=== PATIENT | female | born 1935 | race Caucasian/White ===

== ENCOUNTER 2022-12-13 10:59 | Emergency (ER) | payer MEDICARE, SELFPAY ==
[2022-12-13] VITALS (24 sets, daily range): BP systolic 107–136; BP diastolic 50–78; PULSE 46–74; RESP 12–22; TEMP 36.4; O2SAT 98–100
--- NOTE | ~2022-12-13 | CT_ITS ---
EXAMINATION: CT chest abdomen pelvis w con DATE: 12/13/2022 12:12 INDICATION: Syncope and fall. Bradycardia. TECHNIQUE: Computed tomography (CT) of the chest, abdomen, and pelvis was performed with 100 mL Omnip aque-350 intravenous contrast. Automated exposure control and iterative reconstruction technique were employed. The dose-length product was 1094.16 mGy-cm. COMPARISON: None FINDINGS: CHEST CT: Small bilateral pleural effusions. Compressive and discoid atelectasis in the bilateral lower lobes. Couple small calcified nodules at the lingula along with calcified left hilar and mediastinal lymph n odes consistent with old granulomatous disease. No pneumonia, pulmonary edema or pneumothorax. Pulmon lorne emboli with intraluminal filling defects in the anterior basilar and superior segmental pulmonary arteries of the right lower lobe. No other pulmonary emboli identified. Heart size is normal with bi atrial enlargement. No leftward shift of the articular septum to suggest right heart strain. Thoracic aorta is normal in caliber with no dissection. No pathologically enlarged thoracic lymphadenopathy. Several old healed right rib fractures. There is an incompletely visualized minimally displaced fract ure lateral right clavicle which appears to remain ununited. No evident scapular fracture identified although the acromion and base of the acromion are excluded from the [id number]. On review of prio r radiographs the irregular cortical contour along the cephalad margin of the scapula likely represen ts artifact from the superimposed coracoid process. Moderate thoracic spondylosis with mild kyphosis and chronic appearing mild anterior wedging at T6. There are bridging osteophytes at multiple levels consistent with diffuse idiopathic skeletal hyperostosis (DISH). ABDOMEN/PELVIS CT: There are few small hepatic and splenic calcific lesions consistent with old granulomatous disease. G allbladder, pancreas and bilateral adrenal glands are normal. Likely age-related mild bilateral renal atrophy with a few small right renal cysts the largest measuring 9 mm in maximal diameter. Suggestio n of a 7 mm enhancing nodule at the periphery of the upper pole of the left kidney suspicious for rubens al cell carcinoma. There is moderate colonic diverticulosis with a sigmoid predominance. There is no adjacent inflammatory change to suggest diverticulitis. Suggestion of a superolateral and along the tip the cecum suggesting prior appendectomy. No bowel obstruction. Partially decompressed bladder is normal. The uterus is not identified and has likely been surgically resected. No free intraperitoneal gas or fluid. No pathologically enlarged abdominal or pelvic lymphadenopathy. Diffuse body wall chasidy a. There is a subcutaneous surgical drain at the right flank. Single tiny focus of gas in the subcuta neous fat at the anterior right pelvis most likely related to subcutaneous injection. Small amount of gas throughout the surgical defect lateral to the proximal left femur with 3 cannulated lag screws s panning a subcapital fracture of the proximal left femur. Relatively acute appearing L2 burst fractur e with 7 mm retropulsion resulting in mild to moderate central canal stenosis. IMPRESSION: 1. Pulmonary emboli with relatively low clot burden in the superior segmental and anterior basilar se gmental pulmonary arteries of the right lower lobe. 2. Small bilateral pleural effusions with dependent and discoid atelectasis in the bilateral lower lo bes. 3. Normal heart size with biatrial enlargement. No findings to suggest right heart strain. 4. Relatively recent-appearing L2 burst fracture with 7 mm retropulsion resulting in mild to moderate central canal stenosis. 5. Additional relatively recent-appearing mildly displaced potentially ununited fracture of the later al right clavicle. 6. Suggestion of a 7 mm enhancing nodule at the upper pole of the left kidney cachorro
--- NOTE | ~2022-12-13 | CT_ITS ---
EXAMINATION: CT cervical spine wo con DATE: 12/13/2022 12:12 INDICATION: Status post fall. Neck pain. TECHNIQUE: Computed tomography (CT) of the cervical spine was performed without intravenous contrast. The dose-length product was 194 mGy-cm. Automated exposure control and iterative reconstruction technique were employed. COMPARISON: None FINDINGS: There are degenerative changes at C3-4, C4-5 and C5-6. Vertebral body heights are maintaine d. Odontoid process is normal. Craniovertebral junction is normal. No evidence for perched facet. The re is a nondisplaced fracture with sclerotic margins involving the left C7 lamina extending to the honeycutt perior articular process and transverse process. There are sclerotic margin suggesting a chronic frac ture. There is mild multilevel uncinate and facet hypertrophy. There is levoscoliosis. Lung apices ar e normal. No significant paraspinal soft tissue abnormality. IMPRESSION: 1. Nondisplaced C7 vertebral fracture involving the left lamina extending to involve the superior art icular and transverse processes. The margins are sclerotic suggesting a chronic fracture deformity. C onsider correlation with MRI. Reviewed, dictated and finalized at location L. IMPRESSION: 1. Nondisplaced C7 vertebral fracture involving the left lamina extending to in volve the superior articular and transverse processes. The margins are scleroti c suggesting a chronic fracture deformity. Consider correlation with MRI.
--- NOTE | ~2022-12-13 | CT_ITS ---
EXAMINATION: CT brain wo con DATE: 12/13/2022 12:12 INDICATION: Syncope and fall TECHNIQUE: Computed tomography (CT) of the head was performed without intravenous contrast. Sagittal and coronal reconstructions were performed. The mA was adjusted according to patient size. Iterative reconstruction technique was employed. The dose-length product was 605.33 mGy-cm. COMPARISON: None FINDINGS: No fracture. Small lenticular extra-axial hematoma which could be either epidural or subdural overlyi ng the left sylvian fissure which measures 3.5 cm AP, 3.1 cm craniocaudally and up to 1 cm in thickne ss. Asymmetric mild relative decrease fluid within the left sylvian fissure when compared with the ri ght likely reflecting some local mass effect. No other evident masses or mass effect with no midline shift. No acute acute infarction. There is moderate scattered white matter hypoattenuation consistent with chronic small vessel ischemic disease. Symmetric prominence of the sulci and ventricles consist ent with mild to moderate age-appropriate diffuse cerebral volume loss. No mass/mass effect. Changes of bilateral intraocular lens replacement. The orbits, paranasal sinuses and mastoid air cells are no rmal. IMPRESSION: 1. 3.5 x 3.1 x 1 cm either epidural or subdural hematoma overlying the left sylvian fissure. Dr. Alexandra ye discussed these findings with Dr. Diaz at 12:20 PM. 2. Age-related changes including mild to moderate diffuse on loss and moderate scattered white matter hypoattenuation consistent with chronic small vessel ischemic disease. Reviewed, dictated and finalized at location A. IMPRESSION: 1. 3.5 x 3.1 x 1 cm either epidural or subdural hematoma overlying the left pierre vian fissure. Dr. Jameson discussed these findings with Dr. Diaz at 12:20 PM. 2. Age-related changes including mild to moderate diffuse on loss and moderate scattered white matter hypoattenuation consistent with chronic small vessel isc hemic disease.
--- NOTE | ~2022-12-13 | XR_ITS ---
EXAMINATION: XR chest 1V portable DATE: 12/13/2022 12:00 INDICATION: Syncope. Right scapular fracture. TECHNIQUE: frontal view of the chest was obtained. COMPARISON: None FINDINGS: Linear and streaky discoid atelectasis at the bilateral lung bases, left greater than right. Well-def ined airspace opacity lung the left hemidiaphragm which could represent additional atelectasis or pne umonia. No pulmonary edema, pleural effusion or pneumothorax. Cardiomediastinal silhouette is within normal limits for AP technique. There are a few chronic appearing right rib fractures. Age-indetermin ate mildly displaced fractures of the lateral right clavicle and involving right scapular spine and c ephalad body. The clavicular fracture appears to remain ununited. Moderate degenerative skeletal boateng ges in the spine and at both shoulders. IMPRESSION: 1. Bibasilar opacities most likely atelectasis although differential at the left lung base would incl ude pneumonia. 2. Age-indeterminate fractures of the right scapula and lateral right clavicle, the latter appearing ununited. 3. Several chronic appearing right rib fractures. Reviewed, dictated and finalized at location A. IMPRESSION: 1. Bibasilar opacities most likely atelectasis although differential at the lef t lung base would include pneumonia. 2. Age-indeterminate fractures of the right scapula and lateral right clavicle, the latter appearing ununited. 3. Several chronic appearing right rib fractures.
--- NOTE | 2022-12-13 11:04 | ECG_ITS ---
Measurements Intervals [place] Rate: 55 P: DE: 0 QRS: 28 QRSD: 80 T: 33 QT: 392 QTc: 375 Interpretive Statements ATRIAL FIBRILLATION WITH SLOW VENTRICULAR RESPONSE ANTEROSEPTAL INFARCT, AGE INDETERMINATE ABNORMAL ECG NO PREVIOUS ECG AVAILABLE FOR COMPARISON Electronically Signed On 12-13-2022 17:32:08 CDT by Will Cai D.O.
[2022-12-13 11:20] LABS: Glucose Point of Care 116 mg/dl (65-105)
[2022-12-13 11:29] LABS: Basophils Percent Auto 0.7 % (0.2-1.2); Eosinophils Absolute Auto 0.2 K/mm3 (0-0.3); Eosinophils Percent Auto 3.5 % (0-4.4); Hematocrit 30.1 % (37.0-47.0); Hemoglobin 9.6 g/dL (12.0-15.0); Immature Granulocyte Absolute 0.05 K/mm3 (0.00-0.031); Immature Granulocyte Percent A 0.9 % (0-0.5); Lymphocytes Absolute Auto 0.81 K/mm3 (0.9-3.2); Lymphocytes Percent Auto 14.7 % (18.3-44.2); Mean Corpuscular HGB Conc 31.9 g/dl (32-36); Mean Corpuscular Hemoglobin 31.1 pg (26-34); Mean Corpuscular Volume 97.4 fl (80-100); Mean Platelet Volume 9.5 fl (7.4-10.4); Monocytes Absolute Auto 0.7 K/mm3 (0.1-0.6); Monocytes Percent Auto 12.5 % (2.6-8.5); Neutrophils Absolute Auto 3.7 K/mm3 (1.3-6.7); Neutrophils Percent Auto 67.7 % (45.5-73.1); Platelet Count Result 240 k/mm3 (150-375); Red Blood Count 3.09 M/mm3 (4.2-5.4); Red Cell Distribution Width 14.9 % (11.5-14.5); White Blood Count 5.5 K/mm3 (4.5-10.0)
--- NOTE | 2022-12-13 11:31 | ED.FALL ---
HPI - Fall General Chief Complaint: Neuro Symptoms/Deficit Stated Complaint: Altered Mental Status Time Seen by Provider: 12/13/22 11:06 History of Present Illness HPI Narrative: This is an 87-year-old female, recently discharged from [facility] after a fall with an epidural hematoma, who was brought in by EMS from physical therapy for hypotension and episode of unresponsiveness. EMS reports, the patient was participating in physical therapy at her baseline after her initial injury, when she became unresponsive. A blood pressure of 60/40 was reported. On their arrival, the patient's systolic blood pressure was reported in the low 100s. Blood glucose reported in the 120s. The patient does not recall losing consciousness. She has no pain or difficulty breathing. Related Data Home Medications Medication Instructions Recorded Confirmed alendronate 70 mg tablet 70 mg PO WEEKLY 04/29/22 04/29/22 levothyroxine 112 mcg tablet 112 mcg PO DAILY 04/29/22 04/29/22 oxybutynin chloride 5 mg 5 mg PO DAILY 04/29/22 04/29/22 tablet,extended release 24 hr primidone 50 mg tablet 50 mg PO HS 04/29/22 04/29/22 warfarin 10 mg tablet See Rx Instructions .Route .COMPLEX 04/29/22 04/29/22 Allergies Allergy/AdvReac Type Severity Reaction Status Date / Time adhesive Allergy Rash Verified 04/21/22 18:33 bacitracin AdvReac Rash Verified 04/21/22 18:33 [From Neosporin ([id number])] neomycin AdvReac Rash Verified 04/21/22 18:33 [From Neosporin ([id number])] polymyxin B AdvReac Rash Verified 04/21/22 18:33 [From Neosporin ([id number])] Plasticized base Allergy Rash Uncoded 04/21/22 18:33 CVS hemorrhoidal cream AdvReac Swelling Uncoded 04/21/22 18:33 Review of Systems Review of Systems: CONSTITUTIONAL: Denies fever, chills, or sweats. CARDIOVASCULAR: Denies chest pain, palpitations, or edema. RESPIRATORY: Denies cough or dyspnea. GASTROINTESTINAL: Denies abdominal pain, nausea, vomiting, or diarrhea. GENITOURINARY: Denies dysuria or hematuria. SKIN: Denies rash or itching. MUSCULOSKELETAL: Denies back pain, joint pain, or myalgia. NEUROLOGIC: Generalized weakness denies headache, numbness, dizziness, or weakness. PSYCHIATRIC: Denies anxiety or depression. [facility] Past Medical History Medical History (Updated 12/13/22 @ 14:29 by Kyler Diaz MD) Cervical spine fracture Chronic a-fib Epidural hematoma History of tremor HTN (hypertension) Hyponatremia Hypothyroidism Overactive bladder Pre-diabetes Seizure Social History Social History Smoking status: Unknown if ever smoked Second hand tobacco smoke exposure: No Alcohol intake: unknown Substance use: unknown Substance use type: unknown Spiritual care concerns: No Exam Narrative: GENERAL: Well-developed, well-nourished, and in no acute distress. HEAD: Normocephalic, healing ecchymosis is noted to the right temporal scalp EYES: PERRLA and EOMI. ENT: Nares clear, no rhinorrhea or epistaxis. Mucous membranes moist. Oropharynx without tonsillar hypertrophy exudate or other lesions. Bilateral TMs pearly marmolejo nonbulging. No hemotympanum NECK: C-collar. Supple. No adenopathy or masses. No carotid bruits or JVD. No midline spine tenderness to palpation, no step-off or crepitus CHEST: Clear to auscultation. No respiratory distress. No wheezes rales or rhonchi HEART: Irregular, bradycardic. No murmur heard. Normal peripheral pulses. ABDOMEN: Soft, nontender, nondistended, normal active bowel sounds. ROBERTA drain is noted in the right lower quadrant, just above the inguinal ligament draining approximately 25 cc of bloody fluid without purulence. BACK: No midline spine tenderness to palpation, no step-off or crepitus. A stage 1 pressure ulcer is noted on the back just right of midline a T4 EXTREMITIES: Normal range of motion. No edema. SKIN: Warm, dry, no
[2022-12-13 11:42] LABS: Alanine Aminotransferase 29 U/L (6-35); Albumin Level 2.7 g/dL (3.5-5.1); Alkaline Phosphatase 78 U/L (38-126); Anion Gap 1 mmol/L (8-16); Aspartate Amino Transferase 34 U/L (14-36); Bilirubin,Total 0.4 mg/dL (0.2-1.3); Blood Urea Nitrogen 36 mg/dL (7-17); Calcium 8.1 mg/dL (8.4-10.2); Carbon Dioxide 34 mmol/L (22-30); Chloride 91 mmol/L (98-107); Estimated CRCL calculation 40 ml/min; Estimated Glomerular Filt Rate > 60; Glucose 104 mg/dL (65-110); Potassium 3.8 mmol/L (3.4-5.0); Sodium 126 mmol/L (137-145)
[2022-12-13 11:55] LABS: Lactic Acid Reflex 1.2 mmol/L (0.7-2.0)
[2022-12-13 12:01] LABS: INR 1.1; Prothrombin Time 14.8 Seconds (11.1-14.7)
[2022-12-13 12:02] LABS: Partial Thromboplastin Time 29.9 SECONDS (22.3-36.8)
[2022-12-13 12:04] LABS: Appearance Urine Cloudy (Clear); Bacteria Urine 4+ /hpf; Bilirubin Urine Negative (Negative); Color Urine Yellow (Yellow); Glucose Urine UA Negative (Negative); Ketones Urine Negative (Negative); Leukocyte Esterase Ur 3+ LEU/UL (Negative); Need Manual Microscopic Reviewed; Nitrate Urine Negative (Negative); Protein Urine Trace mg/dL (Negative); RBC Urine 0-2 /hpf (0-2); Specific Grav Ur 1.016 (1.001-1.035); Squamous Epithelial Cell Urine None seen /hpf (Few); WBC Urine >100 /hpf; pH Urine 7.5 (5.0-9.0)
[2022-12-13] MEDS: SODIUM CHLORIDE 0.9% IV 2,200 ML/1,000 ML BAG 999 ML IV CONT ×3 (12:16→13:38)
[2022-12-13 12:26] LABS: Add Urine Microscopic? YES
[2022-12-13 12:36] LABS: Troponin I < 0.012 ng/mL (0.000-0.034)
[2022-12-13 13:32] LABS: Free T4 Free Thyroxine Reflex 1.28 ng/dL (0.78-2.19)
[2022-12-13 14:20] LABS: Total Triiodothyronine (T3) 0.57 NG/ML (0.97-1.69)
--- NOTE | 2022-12-13 14:43 | PC.NURSE ---
Report called to [facility] ED. Report given to Michaela ASTUDILLO
== END 2022-12-13 16:09 | disposition short-term general hospital (02) ==
PROVIDERS: Emergency Provider Preventive Medicine Aerospace Medicine
DX: R55 Syncope and collapse (principal); E87.1 Hypo-osmolality and hyponatremia; I26.99 Other pulmonary embolism without acute cor pulmonale; S06.4XAD Epidural hemorrhage with loss of consciousness status unknown, subsequent encounter; S42.111D Displaced fracture of body of scapula, right shoulder, subsequent encounter for fracture with routine healing; S42.191D Fracture of other part of scapula, right shoulder, subsequent encounter for fracture with routine healing; S42.031K Displaced fracture of lateral end of right clavicle, subsequent encounter for fracture with nonunion; K57.90 Diverticulosis of intestine, part unspecified, without perforation or abscess without bleeding; S12.691D Other nondisplaced fracture of seventh cervical vertebra, subsequent encounter for fracture with routine healing; L89.111 Pressure ulcer of right upper back, stage 1; I48.20 Chronic atrial fibrillation, unspecified; I10 Essential (primary) hypertension; E03.9 Hypothyroidism, unspecified; R73.03 Prediabetes; N32.81 Overactive bladder; Z79.01 Long term (current) use of anticoagulants; R94.31 Abnormal electrocardiogram [ECG] [EKG]; W19.XXXD Unspecified fall, subsequent encounter
CPT/HCPCS: 36415; 70450; 71045; 71260; 72125; 74177; 80053; 81001; 82948; 83605; 84439; 84443; 84480; 84484; 85025; 85610; 85730; 87040; 87086; 87088; 93005; 96361; 96365; 99291; J0696; J7030; Q9967

== ENCOUNTER 2022-12-21 08:37 | Inpatient (IN) | payer MEDICARE, SELFPAY ==
[2022-12-21] VITALS (27 sets, daily range): BP systolic 109–146; BP diastolic 55–93; PULSE 67–98; RESP 14–27; TEMP 35.7–36; O2SAT 90–100; BMI 25.7
--- NOTE | ~2022-12-21 | CT_ITS ---
EXAMINATION: CT brain wo con DATE: 12/21/2022 09:36 INDICATION: Unresponsive. TECHNIQUE: Computed tomography (CT) of the head was performed without intravenous contrast. The mA wa s adjusted according to patient size. Iterative reconstruction technique was employed. The dose-lengt h product was 605.33 mGy-cm. COMPARISON: Head CT 12/13/2022 FINDINGS: There is a subdural hematoma overlying the left cerebral hemisphere with maximum thickness of 2.6 cm. The hematoma is predominantly hypodense to marmolejo matter with small areas of hypodensity. Th ere is no acute ischemic infarct or abnormal mass lesion. There are scattered areas of low attenuatio n in the cerebral white matter. There is 12 mm rightward midline shift at the foramen of Monro. There is enlargement of temporal horn of right lateral ventricle. There is mild mucosal thickening in the paranasal sinuses. There are old fracture deformities of the nasal bones. The mastoid air cells are n ormal. There are likely changes of ocular lens replacement surgeries. IMPRESSION: 1. Worsened acute left-sided subdural hematoma with 12 mm rightward midline shift and entrapment of r ight lateral ventricle. 2. Moderate nonspecific cerebral white matter disease, which likely represents chronic small vessel i schemic disease. Reviewed, dictated and finalized at location A. IMPRESSION: 1. Worsened acute left-sided subdural hematoma with 12 mm rightward midline kaitlynn ft and entrapment of right lateral ventricle. 2. Moderate nonspecific cerebral white matter disease, which likely represents chronic small vessel ischemic disease.
--- NOTE | ~2022-12-21 | XR_ITS ---
XR chest 1V portable 12/21/2022 09:41 Indication: Weakness. Recent clavicle fracture. Procedure: AP portable chest Comparison: 12/13/2022 Findings: Moderate cardiomegaly with interstitial edema. No pleural effusion or pneumothorax. No acut e osseous abnormality. There is a possible nondisplaced left humeral neck fracture. There is a fractu re distal aspect of the right clavicle. Impression: 1: Cardiomegaly with interstitial edema. 2: Comminuted fracture distal aspect of the right clavicle. 3: Possible nondisplaced left humeral neck fracture. Reviewed, dictated and finalized at location B. Impression: 1: Cardiomegaly with interstitial edema. 2: Comminuted fracture distal aspect of the right clavicle. 3: Possible nondisplaced left humeral neck fracture.
--- NOTE | 2022-12-21 08:42 | ECG_ITS ---
Measurements Intervals [place] Rate: 67 P: [place]: 0 QRS: 35 QRSD: 92 T: 53 QT: 408 QTc: 433 Interpretive Statements ATRIAL FIBRILLATION ANTEROSEPTAL INFARCT, AGE INDETERMINATE ABNORMAL ECG COMPARED TO ECG 12/13/2022 11:04:20 HEART RATE HAS INCREASED Electronically Signed On 12-21-2022 9:43:43 CDT by Will aCi D.O.
[2022-12-21 08:48] LABS: Glucose Point of Care 151 mg/dl (65-105)
[2022-12-21 09:00] LABS: Basophils Percent Auto 0.4 % (0.2-1.2); Eosinophils Absolute Auto 0.1 K/mm3 (0-0.3); Eosinophils Percent Auto 2.4 % (0-4.4); Hematocrit 29.6 % (37.0-47.0); Hemoglobin 9.7 g/dL (12.0-15.0); Immature Granulocyte Absolute 0.02 K/mm3 (0.00-0.031); Immature Granulocyte Percent A 0.4 % (0-0.5); Mean Corpuscular HGB Conc 32.8 g/dl (32-36); Mean Corpuscular Volume 94.6 fl (80-100); Mean Platelet Volume 9.1 fl (7.4-10.4); Monocytes Absolute Auto 0.5 K/mm3 (0.1-0.6); Monocytes Percent Auto 9.2 % (2.6-8.5); Neutrophils Absolute Auto 4.1 K/mm3 (1.3-6.7); Neutrophils Percent Auto 81.6 % (45.5-73.1); Platelet Count Result 247 k/mm3 (150-375); Red Blood Count 3.13 M/mm3 (4.2-5.4); Red Cell Distribution Width 14.5 % (11.5-14.5)
[2022-12-21 09:10] LABS: Alanine Aminotransferase 28 U/L (6-35); Albumin Level 3.3 g/dL (3.5-5.1); Alkaline Phosphatase 100 U/L (38-126); Ammonia < 9 umol/L (9-30); Anion Gap 2 mmol/L (8-16); Aspartate Amino Transferase 32 U/L (14-36); Bilirubin,Total 0.5 mg/dL (0.2-1.3); Blood Urea Nitrogen 21 mg/dL (7-17); Calcium 8.4 mg/dL (8.4-10.2); Carbon Dioxide 33 mmol/L (22-30); Chloride 86 mmol/L (98-107); Creatine Kinase 25 U/L (30-135); Estimated CRCL calculation 54 ml/min; Estimated Glomerular Filt Rate > 60; Glucose 148 mg/dL (65-110); Sodium 121 mmol/L (137-145)
[2022-12-21 09:21] LABS: Troponin I < 0.012 ng/mL (0.000-0.034)
--- NOTE | 2022-12-21 09:21 | PC.NURSE ---
According to pt's rehab paperwork, pt was admitted to [facility] for a neck fracture, PT, and OT. Pt was seen and at the ED for an unresponsive episode and low blood pressure. Pt was stabilized and returned home that day.
[2022-12-21 09:35] LABS: Appearance Urine Turbid (Clear); Bacteria Urine 4+ /hpf; Bilirubin Urine Negative (Negative); Blood Urine Trace (Negative); Color Urine Yellow (Yellow); Glucose Urine UA Negative (Negative); Ketones Urine Negative (Negative); Leukocyte Esterase Ur 3+ LEU/UL (Negative); Nitrate Urine Negative (Negative); Non Pathogenic Casts 0-2; Protein Urine 2+ mg/dL (Negative); Specific Grav Ur 1.011 (1.001-1.035); Squamous Epithelial Cell Urine None seen /hpf (Few); Urobilinogen Urine 0.2 mg/dL (<2.0); WBC Urine >100 /hpf
--- NOTE | 2022-12-21 09:35 | ED.AMS ---
HPI - Altered Mental Status General Chief Complaint: Altered Mental Status Stated Complaint: unresponsive Time Seen by Provider: 12/21/22 08:37 History of Present Illness HPI narrative: Pt presents from local NH after being found unresponsive this morning in bed. Pt has no known injury or fall. Pt has no fever per staff. EMS provided all history and NH report as pt is not responding. Related Data Home Medications Medication Instructions Recorded Confirmed alendronate 70 mg tablet 70 mg PO WEEKLY 04/29/22 12/21/22 levothyroxine 112 mcg tablet 112 mcg PO DAILY 04/29/22 12/21/22 oxybutynin chloride 5 mg 5 mg PO DAILY 04/29/22 12/21/22 tablet,extended release 24 hr primidone 50 mg tablet 50 mg PO HS 04/29/22 12/21/22 warfarin 10 mg tablet 7.5 mg PO DAILY 04/29/22 12/21/22 furosemide 40 mg tablet 40 mg PO DAILY 12/14/22 12/21/22 metoprolol succinate 25 mg 100 mg PO DAILY 12/14/22 12/21/22 tablet,extended release 24 hr (Toprol XL) Allergies Allergy/AdvReac Type Severity Reaction Status Date / Time latex Allergy Severe Rash Verified 12/21/22 15:35 adhesive Allergy Rash Verified 12/21/22 13:10 bacitracin AdvReac Rash Verified 12/21/22 13:10 [From Neosporin ([id number])] neomycin AdvReac Rash Verified 12/21/22 13:10 [From Neosporin ([id number])] polymyxin B AdvReac Rash Verified 12/21/22 13:10 [From Neosporin ([id number])] Plasticized base Allergy Rash Uncoded 04/21/22 18:33 CVS hemorrhoidal cream AdvReac Swelling Uncoded 04/21/22 18:33 Review of Systems Review of Systems: ROS unobtainable: Yes unobtainable due to mental status PMFSH Past Medical History Medical History Cervical spine fracture Chronic a-fib Epidural hematoma History of tremor HTN (hypertension) Hyponatremia Hypothyroidism Overactive bladder Pre-diabetes Seizure Social History Social History Smoking status: Never smoker Second hand tobacco smoke exposure: No Alcohol intake: never Substance use: never Substance use type: unknown Lack of Transportation: No Lack of Food: Never True Current Housing: I Have Housing Concerned About Future Housing: No Difficulty Paying Gas/Electric Bills: No Difficulty Paying for Meds: No Currently Unemployed: No Education: Decline to Answer Difficulty w/ Childcare or Family Care: No Spiritual care concerns: Yes (request estate planner; Jainism letha) Exam Const: General: no acute distress Nutritional Appearance: well nourished Limitations: altered mental status HENMT: Head: normal to inspection Eyes: Conjunctivae: conjunctivae normal Other: eyes deviating laterally Neck: Neck: normal visual inspection Resp: Effort & Inspection: normal respiratory effort Auscultation: clear to auscultation bilaterally Cardio: Rate: regular rate Rhythm: regular rhythm GI: GI Palp: Yes Soft to palpation Auscultation: normal bowel sounds Other: drain in place rlq draining serosanguinous fluid small amount Skin: Other: bruising shoulder Extrem: Other: bruising Course Course Emergency Course: Pt has large subdural hematoma with shift of CT. Pt has had a very complicated course recently with a prior subdural and fractures of c spine and shoulder and was admitted to [facility] recently before being found unresponsive this morning. Talked to son over the phone and daughter in law. Told of grim prognosis. Discussed with [facility] at [facility] and willing to take transfer if family wishes. Son and duaghter in law decided to make patient a DNR at 1004 and comfort measure only. d/w dr galindo and wondered if patient could be hospice. Discussed with family and would rather her be admitted for now as they are not quite ready to make that decision yet. discussed with dr garner and he agrees to admit on comfo
--- NOTE | 2022-12-21 09:35 | PC.NURSE ---
Pt has the occasional snoring respiration.
[2022-12-21 09:36] LABS: Lactic Acid Reflex 1.6 mmol/L (0.7-2.0)
[2022-12-21 09:37] LABS: Add Urine Microscopic? YES
--- NOTE | 2022-12-21 09:42 | PC.NURSE ---
Pt is on Enoxaparin 70mg and Warfarin 10mg.
[2022-12-21 09:43] LABS: INR 1.5; Prothrombin Time 19.2 Seconds (11.1-14.7)
[2022-12-21 09:45] LABS: Partial Thromboplastin Time 45.8 SECONDS (22.3-36.8)
--- NOTE | 2022-12-21 12:46 | PM.IMHP ---
H&P: HPI History of Present Illness Date/Time: 12/21/22 12:46 Chief Complaint: AMS Narrative: Pt presents from local NH after being found unresponsive this morning in bed.? Pt has no known injury or fall.? Pt has no fever per staff.? EMS provided all history and NH report as pt is not responding. Pt has large subdural hematoma with shift of CT.? Pt has had a very complicated course recently with a prior subdural and fractures? of c spine and shoulder and was admitted to [facility] recently before being found unresponsive this morning.? Son and daughter in law decided to make patient a DNR at 1004 and comfort measure only.? patient is being admitted with comfort measures. family to decide about hospice. Review of Systems Review of Systems: ROS unobtainable: Yes unobtainable due to mental status PMFSH Past Medical History Medical History Cervical spine fracture Chronic a-fib Epidural hematoma History of tremor HTN (hypertension) Hyponatremia Hypothyroidism Overactive bladder Pre-diabetes Seizure Social History Social History Smoking status: Unknown if ever smoked Second hand tobacco smoke exposure: No Alcohol intake: unknown Substance use: unknown Substance use type: unknown Spiritual care concerns: No Meds Home Medications and Allergies Home Medications Medication Instructions Recorded Confirmed Type alendronate 70 mg tablet 70 mg PO WEEKLY 04/29/22 12/14/22 History levothyroxine 112 mcg tablet 112 mcg PO DAILY 04/29/22 12/14/22 History oxybutynin chloride 5 mg 5 mg PO DAILY 04/29/22 12/14/22 History tablet,extended release 24 hr primidone 50 mg tablet 50 mg PO HS 04/29/22 12/14/22 History warfarin 10 mg tablet See Rx Instructions .Route .COMPLEX 04/29/22 04/29/22 History pyridoxine (vitamin B6) 100 mg 100 mg PO QAM #30 tabs 05/03/22 12/14/22 Rx tablet (Vitamin B-6) sodium chloride 1 gram tablet 1 g PO BID #60 tabs 05/03/22 12/14/22 Rx furosemide 40 mg tablet 40 mg PO DAILY 12/14/22 12/14/22 History metoprolol succinate 25 mg 100 mg PO DAILY 12/14/22 12/14/22 History tablet,extended release 24 hr (Toprol XL) Allergies Allergy/AdvReac Type Severity Reaction Status Date / Time adhesive Allergy Rash Verified 12/14/22 08:30 bacitracin AdvReac Rash Verified 12/14/22 08:30 [From Neosporin ([id number])] neomycin AdvReac Rash Verified 12/14/22 08:30 [From Neosporin ([id number])] polymyxin B AdvReac Rash Verified 12/14/22 08:30 [From Neosporin ([id number])] Plasticized base Allergy Rash Uncoded 04/21/22 18:33 CVS hemorrhoidal cream AdvReac Swelling Uncoded 04/21/22 18:33 Vital Signs Vital Signs - 24 hr 12/21/22 08:38 12/21/22 09:37 12/21/22 09:40 Temperature 96.8 F L Pulse Rate 82 86 67 Respiratory Rate 20 17 18 Blood Pressure 131/76 134/69 Pulse Oximetry 95 98 Oxygen Delivery Room Air 12/21/22 09:41 12/21/22 09:45 12/21/22 09:46 Temperature Pulse Rate 71 74 71 Respiratory Rate 16 17 16 Blood Pressure 146/82 H Pulse Oximetry 98 100 Oxygen Delivery 12/21/22 10:00 12/21/22 10:02 12/21/22 10:08 Temperature Pulse Rate 68 80 79 Respiratory Rate 18 17 Blood Pressure 127/66 Pulse Oximetry 98 98 Oxygen Delivery 12/21/22 10:16 12/21/22 10:17 12/21/22 10:30 Temperature Pulse Rate 79 79 84 Respiratory Rate 18 16 19 Blood Pressure 142/78 H Pulse Oximetry 97 100 97 Oxygen Delivery 12/21/22 10:31 12/21/22 10:45 12/21/22 10:46 Temperature Pulse Rate 73 76 73 Respiratory Rate 19 15 14 Blood Pressure 133/91 H 128/75 Pulse Oximetry 95 98 96 Oxygen Delivery 12/21/22 10:47 12/21/22 12:04 Temperature Pulse Rate 87 68 Respiratory Rate 18 20 Blood Pressure 131/93 H Pulse Oximetry 97 94 Oxygen Delivery Exam Const: Limitations: altered mental sta
--- NOTE | 2022-12-21 12:52 | PC.NURSE ---
Pt coughed up yellowish phlegm and required suctioning. Pt's airway is opened and phlegm is suctioned. Pt's vitals remained stable.
[2022-12-21] MEDS: SCOPOLAMINE 1.5 MG PATCH TRANSDERM (12:58)
--- NOTE | 2022-12-21 13:30 | PM.DS ---
DS: Admitting Diagnosis Discharge Date 12/21/2022 Admitting Diagnosis fall/poly trauma DS: Summary Hospital Course Hospital Course: Subjective Date/time seen: 12/20/22? 14:41 Interval history: 12/14 Patient came back early this morning Ordered for Q4 vital signs and [id number] checks for 24 hours, then Qshift For PT/OT/ST re evaluation today No nausea, vomiting, diarrhea, or constipation No overnight issue or concern 12/15 Patient was seen and evaluated today Claimed that she slept well last night and is eating okay ?participating well with therapy no shortness of breath chest pain or palpitation ?no nausea vomiting diarrhea constipation No overnight issue or concern 12/16 Patient was seen and evaluated today Claimed that she slept well last night and is eating okay ?participating well with therapy no shortness of breath chest pain or palpitation ?no nausea vomiting diarrhea constipation No overnight issue or concern ?independent with eating and oral hygiene.? supervision to transfer to tub or shower? 12/17 The patient was seen and examined today patient is resting comfortably No new issues to report Labs and vital signs reviewed Sodium was 126 on 12/13 Hemoglobin 9 on 12/13 Repeat CBC and BMP on Tuesday 12/19 ?12/18:? Patient sen and examined this morning.? Resting comfortably.? No acute events overnight.? Follow-up blood work Monday. 12/19 Patient was seen and evaluated today Claimed that she slept well last night and is eating okay labs reviewed today Sodium is still 124, Hemoglobin increased from9.6 to 9.8 Will send referral to [facility] Minimum assist for upper body dressing.? Maximum assist for lower body dressing.? Maximum assist for toilet transfer 12/20 Patient was seen and evaluated today Claimed that she slept well last night and is eating okay Participating well with therapy, no shortness of breath, chest pain, or palpitations Reviewed urine analysis result today showed WBC >100, urine bacteria 4+, Leukocyte esterase 3+. Started Macrobid 100? mg PO Q12H For Vitamin B12 injection today No other issue or concern 12/21 Patient was seen and evaluated today Patient is unresponsive and unable to maintain airway Called 911 for transfer to ED Review of Systems Review of Systems:?? All systems reviewed & are unremarkable except as noted in HPI and below Exam Narrative:?? GENERAL: Well-developed, no acute distress. HEAD: healing ecchymosis is noted to the right temporal scalp EYES: PERRLA and EOMI. ENT:.? Mucous membranes moist.? NECK: C-collar.? Supple. CHEST: Clear to auscultation.? No respiratory distress.? No wheezes rales or rhonchi HEART: Irregular, bradycardic. No murmur heard.? Normal peripheral pulses. ABDOMEN: Soft, nontender, nondistended, normal active bowel sounds. ROBERTA drain EXTREMITIES: Normal range of motion.? No edema. NEURO:? Alert and oriented x3.? PSYCH: Normal mood and affect. ? Objective Data Vital Signs Vital Signs: Vital Signs - 24 hr ? 12/20/2315:59 12/20/2319:00 12/20/2305:00 Temperature 36.2 C L ? 36.3 C L Pulse Rate 70 70 86 Respiratory Rate 20 20 20 Blood Pressure 133/71 ? 155/89 H Pulse Oximetry 98 98 98 Oxygen Delivery ? Room Air ? ? 12/21/2307:16 12/21/2307:00 Temperature ? ? Pulse Rate 84 ? Respiratory Rate ? ? Blood Pressure ? ? Pulse Oximetry ? ? Oxygen Delivery ? Room Air Intake/Output Intake/Output: Intake & Output ? 12/17/22 12/18/22 12/19/22 12/20/22 ? 23:59 23:59 23:59 23:59 Intake Total 1200 1350 1320 320 Output Total 25 25 10 ? Balance 1175 1325 1310 320 Meds/Results Medications: Active Medications Generic Name Dose Route Start Last Admin ? Trade Name Freq? PRN Reason Stop Dose Admin Acetaminophen ?650 mg ?12/14/22 09:20 ?12/20/22 13:01 ? Acetaminophen 325 Mg Tablet ?PO ? ?650 mg ? ?Q6H PRN ? ?Administration ? ?Mild Pain (1-3) or Fever ? ? Bisacodyl ?10 mg ?12/14/22 08:22 ? ? Bisacodyl 10 Mg Suppository ?RECTAL ?QAM PRN ?Consti
--- NOTE | 2022-12-21 13:33 | PM.IMPN ---
Progress Note: A&P Assessment and Plan (1) Epidural hematoma: Code(s): S06.4XAA - Epidural hemorrhage with loss of consciousness status unknown, initial encounter Status: Acute Assessment and Plan: continue PT/OT continue pain managment (2) Cervical spine fracture: Code(s): S12.9XXA - Fracture of neck, unspecified, initial encounter Status: Acute Assessment and Plan: continue PT/OT continue pain managment (3) Closed burst fracture of cervical vertebra: Code(s): S12.9XXA - Fracture of neck, unspecified, initial encounter Status: Acute Assessment and Plan: continue PT/OT continue pain managment (4) Nasal bone fracture: Code(s): S02.2XXA - Fracture of nasal bones, initial encounter for closed fracture Status: Acute Assessment and Plan: continue PT/OT continue pain managment (5) Clavicle fracture: Code(s): S42.009A - Fracture of unspecified part of unspecified clavicle, initial encounter for closed fracture Status: Acute Assessment and Plan: continue PT/OT continue pain management (6) Scapula fracture: Code(s): S42.109A - Fracture of unspecified part of scapula, unspecified shoulder, initial encounter for closed fracture Status: Acute Assessment and Plan: continue PT/OT continue pain management (7) Fracture of manubrium: Code(s): S22.21XA - Fracture of manubrium, initial encounter for closed fracture Status: Acute Assessment and Plan: continue PT/OT continue pain management (8) Atrial fibrillation: Code(s): I48.91 - Unspecified atrial fibrillation Status: Chronic Assessment and Plan: metoprolol 75mg BID avoid anticoagulation at this time due to high bleeding risk (9) HTN (hypertension), benign: Code(s): I10 - Essential (primary) hypertension Status: Chronic Assessment and Plan: metoprolol 75mg BID (10) Seizure: Code(s): R56.9 - Unspecified convulsions Status: Acute Assessment and Plan: keppra 500 mg BID (11) Depression: Code(s): F32.A - Depression, unspecified Status: Chronic Assessment and Plan: remeron 7.5 mg qhs (12) Urge incontinence: Code(s): N39.41 - Urge incontinence Status: Acute Assessment and Plan: oxybutynin 5mg daily (13) Hypothyroidism: Code(s): E03.9 - Hypothyroidism, unspecified Status: Chronic Assessment and Plan: levothyroxine 112mcg daily (14) Urinary tract infection: Code(s): N39.0 - Urinary tract infection, site not specified Status: Acute Assessment and Plan: Started on Macrobid 100 mg PO Q12H for 7 days Time Spent With Patient Time with patient: 15 - 25 minutes Subjective Date/time seen: 12/21/22 13:33 Interval history: Subjective Date/time seen: 12/20/22? 14:41 Interval history: 12/14 Patient came back early this morning Ordered for Q4 vital signs and L3vsrtr checks for 24 hours, then Qshift For PT/OT/ST re evaluation today No nausea, vomiting, diarrhea, or constipation No overnight issue or concern 12/15 Patient was seen and evaluated today Claimed that she slept well last night and is eating okay ?participating well with therapy no shortness of breath chest pain or palpitation ?no nausea vomiting diarrhea constipation No overnight issue or concern 12/16 Patient was seen and evaluated today Claimed that she slept well last night and is eating okay ?participating well with therapy no shortness of breath chest pain or palpitation ?no nausea vomiting diarrhea constipation No overnight issue or concern ?independent with eating and oral hygiene.? supervision to transfer to tub or shower? 12/17 The patient was seen and examined today patient is resting comfortably No new issues to report Labs and vital signs reviewed Sodium was 126 on 12/13 Hemoglobin 9 on 12/13 Repeat CBC and BMP on
--- NOTE | 2022-12-21 15:27 | ADMGEN ---
This patient, Marjorie Avila, was admitted to 3 [facility] Room 300-01. Patient/family oriented to hospital policies and general routines including ID bracelet, bed and alarms, visiting hours, pain management, procedures, bathroom and other care routines, personal items, smoking policy, room service/diet, and visiting hours. Information on how to activate the Rapid Response Team has been discussed. Patient/Family are encouraged to report perceived risks to care and to ask questions if they do not understand what they are told or what they should do.
[2022-12-22 01:15] VITALS: BP 105/55; PULSE 91; RESP 28; TEMP 36.1; O2SAT 94
[2022-12-22 04:35] VITALS: BP 109/56; PULSE 105; RESP 20; TEMP 36.3; O2SAT 92
[2022-12-22 08:00] VITALS: O2SAT 93
[2022-12-22] MEDS: ATROPINE SULFATE 1% OPHTH SOLN 5 ML BOTTLE 2 DROP SUBLINGUAL ×2 (11:49→15:01)
--- NOTE | 2022-12-22 12:55 | PM.IMPN ---
Progress Note: A&P Assessment and Plan (1) Acute subdural hematoma: Code(s): S06.5XAA - Traumatic subdural hemorrhage with loss of consciousness status unknown, initial encounter Status: Acute Assessment and Plan: Patient was found unresponsive at the halfway. H/o 3.5 x 3.1 x1 cm epidural and subdural hematoma on CT head 12/13/22. Repeat head CT this admission shows worsened acute left sided subdural hematoma with 12 mm rightward midline shift and entrapment of right lateral ventricle. comfort care decided by family. Awaiting hospice arrangements. Continue palliative care- morphine IV and Ativan IV PRN pain, air hunger or restlessness; scopolamine patch Q72 hours and PRN atropine drops for increased secretions. Appreciate care coordinations assistance. continue supportive care. (2) Need for comfort care: Status: Acute Assessment and Plan: As above. (3) Hypothyroidism: Qualifiers: Hypothyroidism type: unspecified Qualified Code(s): E03.9 - Hypothyroidism, unspecified Code(s): E03.9 - Hypothyroidism, unspecified Status: Chronic Assessment and Plan: Unable to take PO. (4) HTN (hypertension), benign: Code(s): I10 - Essential (primary) hypertension Status: Chronic Assessment and Plan: Unable to take PO. (5) Depression: Qualifiers: Depression Type: unspecified Qualified Code(s): F32.A - Depression, unspecified Code(s): F32.A - Depression, unspecified Status: Chronic Assessment and Plan: Unable to take PO. (6) Atrial fibrillation: Qualifiers: Atrial fibrillation type: unspecified Qualified Code(s): I48.91 - Unspecified atrial fibrillation Code(s): I48.91 - Unspecified atrial fibrillation Status: Chronic Assessment and Plan: Unable to take PO. Warfarin was held following previous fall and head injury. Plan CODE STATUS: DNR comfort care only. Discharge disposition: pending arrangements for hospice. Time Spent With Patient Time with patient: 15 - 25 minutes Subjective Date/time seen: 12/22/22 12:55 Interval history: Patient moans and withdraws to pain. Patient does not respond to verbal stimulation or vocalize beyond moaning. Review of Systems Review of Systems: ROS unobtainable: Yes unobtainable due to mental status Exam Narrative: General: Loud snoring-type sound. Mental Status/Psych: Withdraws to tactile stimulation. Skin: Scattered echymosis in various stages of healing especially right shoulder/deltoid region. No cyanosis. HEENT: Sclera is non-icteric. Pupils round and nonreactive. Oral mucosa dry. Neck: Unremarkable. Heart: S1 and S2 tachy rate and rhythm. Unable to auscultate murmurs or gallops. Chest: Respirations 20-28 bpm. Lung sounds coarse throughout, especially upper airway Abdomen: Soft, obese and non-tender to palpation.? Bowel sounds hypoactive. No grimacing with palpation. Extremities:? Generalized trace edema BUE and BLE. No erythema. dorsalis pedis pulses diminished but equal bilaterally. No spontaneous movements. Neurological: Unresponsive and nonverbal. ? Objective Data Vital Signs Vital Signs: Vital Signs - 24 hr 12/21/22 13:03 12/21/22 13:15 12/21/22 13:16 Temperature Pulse Rate 77 84 72 Respiratory Rate 18 18 17 Blood Pressure 131/70 132/85 Pulse Oximetry 98 99 98 Oxygen Delivery Oxygen Flow Rate 12/21/22 13:30 12/21/22 20:00 12/21/22 22:00 Temperature 96.3 F L 96.3 F L Pulse Rate 69 69 98 Respiratory Rate 14 14 27 H Blood Pressure 117/55 L 123/75 Pulse Oximetry 90 90 90 Oxygen Delivery Nasal Cannula Oxygen Flow Rate 2 12/22/22 01:15 12/22/22 04:35 Temperature 96.9 F L 97.3 F L Pulse Rate 91 105 H Respiratory Rate 28 H 20 Blood Pressure 105/55 L 109/56 L Pulse Oximetry 94 92 Oxygen Delivery Oxygen Flow Rate Intake/Output Intake/Output: In
[2022-12-22 14:00] VITALS: BP 132/46; PULSE 108; RESP 16; TEMP 36.3; O2SAT 90
--- NOTE | 2022-12-22 19:05 | PC.NURSE ---
On 12/22/22, Dorothy Lawton, provided care and completed [employer] documentation on this patient. I have reviewed her documentation and agree with the findings.
[2022-12-22 19:55] VITALS: BP 120/78; PULSE 105; RESP 24; TEMP 36.6; O2SAT 95
[2022-12-22 20:00] VITALS: O2SAT 95
[2022-12-23 05:15] VITALS: BP 121/72; PULSE 98; RESP 23; TEMP 36; O2SAT 95
[2022-12-23] MEDS: ATROPINE SULFATE 1% OPHTH SOLN 5 ML BOTTLE 2 DROP SUBLINGUAL ×3 (05:49→13:55)
[2022-12-23 07:50] VITALS: O2SAT 92
[2022-12-23] MEDS: LORazepam INJ (*CRX) 2 MG/ML VIAL 1 MG IV PUSH ×2 (09:06→13:56)
[2022-12-23 14:00] VITALS: BP 123/67; PULSE 133; RESP 26; TEMP 37.5; O2SAT 71
[2022-12-23] MEDS: MORPHINE SULFATE (*CRX) 2 MG/ML INJ IV PUSH (16:07)
--- NOTE | 2022-12-23 16:16 | PM.DS ---
DS: Admitting Diagnosis Discharge Date 12/23/2022 Admitting Diagnosis Acute subdural hematoma Palliative care encounter DS: Discharge Diagnosis Discharge Diagnosis (1) Acute subdural hematoma: Code(s): S06.5XAA - Traumatic subdural hemorrhage with loss of consciousness status unknown, initial encounter Status: Acute Assessment and Plan: Patient was found unresponsive at the long term. H/o 3.5 x 3.1 x1 cm epidural and subdural hematoma on CT head 12/13/22. Repeat head CT this admission shows worsened acute left sided subdural hematoma with 12 mm rightward midline shift and entrapment of right lateral ventricle. comfort care decided by family. Awaiting hospice arrangements. Continue palliative care- morphine IV and Ativan IV PRN pain, air hunger or restlessness; scopolamine patch Q72 hours and PRN atropine drops for increased secretions. Appreciate care coordinations assistance. continue supportive care. (2) Need for comfort care: Status: Acute Assessment and Plan: As above. DS: Summary Hospital Course Reason for hospitalization: unresponsive Hospital Course: Patient presented from a local nursing facility after being found unresponsive in her bed.? Patient had no known injury or fall just prior to this.? No known fever per staff.? Patient was unable to provide any medical history due to cognitive status. Patient was admitted to rehab nursing facility following hospitalization at an outside hospital? after a fall. She was treated for multiple fractures to the face, right clavicle, right scapula, C7 fracture (found to be chronic) and L2 burst fracture; left temporal epidural hematoma, and abdominal wall hematoma.? She had an extended and complicated hospital course that required ICU admission at one time. She was discharged to inpatient rehab on 12/10/22 further PT/OT and was doing well until the day of admission. CT scan obtained in the ED showed large subdural hematoma with 12 mm right shift. The patient's son and [id number] decided to pursue comfort measures only and patient was admitted for arrangements of hospice care. Care coordination was consulted and spoke extensively with the patient's family for arrangements. [facility] hospice was contacted, family was agreeable and she will be discharged to inpatient hospice care. The patient was treated with PRN IV morphine, IV ativan, SL atropine drops and scopolamine patch Q72 hours. Status at Discharge Cognitive/behavioral status at discharge: Comatose Functional status at discharge: bed bound Overall status at discharge: other (terminal ) Time Spent with Patient Time attestation: Total time spent providing and/or coordinating discharge services: Time spent: Greater than 30 minutes Exam Narrative: General: Loud snoring-type sound. Mental Status/Psych: No response to verbal or tactile stimulation. Skin: Scattered echymosis in various stages of healing especially right shoulder/deltoid region. No cyanosis. HEENT: Sclera is non-icteric. Pupils round and nonreactive. Oral mucosa dry. Neck: Unremarkable. Heart: S1 and S2 tachy rate and rhythm. Unable to auscultate murmurs or gallops. Chest: Respirations 20-28 bpm. Lung sounds coarse throughout, especially upper airway Abdomen: Soft, obese and non-tender to palpation.? Bowel sounds hypoactive. No grimacing with palpation. Extremities:? Generalized trace edema BUE and BLE. No erythema. dorsalis pedis pulses diminished but equal bilaterally. No spontaneous movements. Neurological: Unresponsive and nonverbal. ? DS: Data Data Completed and Pending Completed studies during hospitalization: Spec: [id number] Luis Manuel: 12/21/22 Recd: 12/21/22 Status: RES Source: Blood Procedure Result Verified Site Blood Culture Preliminary
== END 2022-12-23 16:50 | disposition hospice, inpatient (51) | DRG 83 ==
LOC: ANHED 11:21 → ANH3MEDSUR 12:59
PROVIDERS: Admitting Provider Family Medicine; Emergency Provider Emergency Medicine; PCP Hospitalist; Visit Provider Nurse Practitioner Family
DX: S06.5XAA Traumatic subdural hemorrhage with loss of consciousness status unknown, initial encounter (principal); E87.1 Hypo-osmolality and hyponatremia; I48.20 Chronic atrial fibrillation, unspecified; Z51.5 Encounter for palliative care; W19.XXXA Unspecified fall, initial encounter; Z66 Do not resuscitate; I10 Essential (primary) hypertension; E03.9 Hypothyroidism, unspecified; N32.81 Overactive bladder; R73.03 Prediabetes; F32.A Depression, unspecified
CPT/HCPCS: 36415; 70450; 71045; 80053; 81001; 82140; 82550; 82948; 83605; 84484; 85025; 85610; 85730; 87040; 87077; 87086; 87186; 93005; 99291; A9270; J2060; J2270

== ENCOUNTER 2022-12-23 16:51 | HOS | payer OTHER, MEDICARE, SELFPAY ==
[2022-12-23 17:11] VITALS: BMI 25.7
[2022-12-23] MEDS: MORPHINE SULFATE INJ (*CRX) 50 MG in SODIUM CHLORIDE 0.9% IV 95 ML IV CONT (17:47)
[2022-12-23] MEDS: ARTIFICIAL TEARS OPHTH SOLN 15 ML BOTTLE 1 DROP EACH EYE (20:49)
--- NOTE | 2022-12-23 21:01 | PM.IMHP ---
H&P: HPI History of Present Illness Date/Time: 12/23/22 21:01 Chief Complaint: Uncontrolled pain Narrative: This 79 year female was hospitalized with a cervical spine fracture as well as other fractures due to a fall. She was stabilized with a hard collar and sent to acute rehab. She was sent back to [facility] because of altered mental status and was found to have enlarging subdural hematoma. Because of her advanced age and comorbidities and wishes not to be resuscitated her family opted for inpatient hospice care for comfort. Review of Systems Review of Systems: ROS unobtainable: Yes unobtainable due to medical condition [facility] Past Medical History Medical History Cervical spine fracture Chronic a-fib Epidural hematoma History of tremor HTN (hypertension) Hyponatremia Hypothyroidism Overactive bladder Pre-diabetes Seizure Family History Family History (Updated 12/23/22 @ 21:03 by Zev Goddard MD) Father No problems noted. Mother No problems noted. Social History Social History Smoking status: Never smoker Second hand tobacco smoke exposure: No Alcohol intake: never Substance use: never Substance use type: unknown Lack of Transportation: No Lack of Food: Never True Current Housing: I Have Housing Concerned About Future Housing: No Difficulty Paying Gas/Electric Bills: No Difficulty Paying for Meds: No Currently Unemployed: No Education: Decline to Answer Difficulty w/ Childcare or Family Care: No Spiritual care concerns: No Meds Home Medications and Allergies Home Medications Medication Instructions Recorded Confirmed Type alendronate 70 mg tablet 70 mg PO WEEKLY 04/29/22 12/21/22 History levothyroxine 112 mcg tablet 112 mcg PO DAILY 04/29/22 12/21/22 History oxybutynin chloride 5 mg 5 mg PO DAILY 04/29/22 12/21/22 History tablet,extended release 24 hr primidone 50 mg tablet 50 mg PO HS 04/29/22 12/21/22 History warfarin 10 mg tablet 7.5 mg PO DAILY 04/29/22 12/21/22 History pyridoxine (vitamin B6) 100 mg 100 mg PO QAM #30 tabs 05/03/22 12/21/22 Rx tablet (Vitamin B-6) furosemide 40 mg tablet 40 mg PO DAILY 12/14/22 12/21/22 History metoprolol succinate 25 mg 100 mg PO DAILY 12/14/22 12/21/22 History tablet,extended release 24 hr (Toprol XL) Allergies Allergy/AdvReac Type Severity Reaction Status Date / Time latex Allergy Severe Rash Verified 12/21/22 15:35 adhesive Allergy Rash Verified 12/21/22 13:10 bacitracin AdvReac Rash Verified 12/21/22 13:10 [From Neosporin ([id number])] neomycin AdvReac Rash Verified 12/21/22 13:10 [From Neosporin ([id number])] polymyxin B AdvReac Rash Verified 12/21/22 13:10 [From Neosporin ([id number])] Plasticized base Allergy Rash Uncoded 04/21/22 18:33 [facility] hemorrhoidal cream AdvReac Swelling Uncoded 04/21/22 18:33 Vital Signs Vital Signs - 24 hr 12/23/22 17:24 Oxygen Delivery Room Air Exam Narrative: Elderly female lying in her hospital bed intermittently grimacing fidgeting and moaning and coughing; minimally responsive to tactile and verbal stimuli Oral mucosa dry Neck no JVD Chest coarse breath sounds Heart regular rate without audible murmur Abdomen bowel sounds hypoactive soft no palpable masses Extremities without edema Musculoskeletal hard cervical collar in place no gross deformities noted to visual inspection Neurologic cranial nerves symmetric to visual inspection Assessment and Plan Assessment and plan (1) Palliative care encounter: Code(s): Z51.5 - Encounter for palliative care Status: Acute Assessment and Plan: Meet inpatient hospice criteria due to requiring continuous IV morphine for control of pain 12/23/2022 morphine increased from 1 milligram/hour to 2 maki
[2022-12-24 06:32] VITALS: BP 109/66; PULSE 134; RESP 28; TEMP 36.8; O2SAT 74
[2022-12-24] MEDS: ARTIFICIAL TEARS OPHTH SOLN 15 ML BOTTLE 1 DROP EACH EYE ×2 (08:01→20:51)
[2022-12-24 15:41] VITALS: BP 96/49; PULSE 141; RESP 12; TEMP 36.8; O2SAT 61
--- NOTE | 2022-12-24 16:03 | PM.IMPN ---
Progress Note: A&P Assessment and Plan (1) Palliative care encounter: Code(s): Z51.5 - Encounter for palliative care Status: Acute Assessment and Plan: Meet inpatient hospice criteria due to requiring continuous IV morphine for control of pain 12/23/2022 morphine increased from 1 milligram/hour to 2 milligrams/hour due to uncontrolled discomfort 12/24/2022 continued morphine drip at 2 mg/hr (2) Acute subdural hematoma: Code(s): S06.5XAA - Traumatic subdural hemorrhage with loss of consciousness status unknown, initial encounter Status: Acute (3) Cervical spine fracture: Code(s): S12.9XXA - Fracture of neck, unspecified, initial encounter Status: Acute (4) Atrial fibrillation: Qualifiers: Atrial fibrillation type: unspecified Qualified Code(s): I48.91 - Unspecified atrial fibrillation Code(s): I48.91 - Unspecified atrial fibrillation Status: Chronic (5) Fracture of manubrium: Code(s): S22.21XA - Fracture of manubrium, initial encounter for closed fracture Status: Acute (6) Scapula fracture: Code(s): S42.109A - Fracture of unspecified part of scapula, unspecified shoulder, initial encounter for closed fracture Status: Acute (7) Clavicle fracture: Code(s): S42.009A - Fracture of unspecified part of unspecified clavicle, initial encounter for closed fracture Status: Acute (8) Nasal bone fracture: Code(s): S02.2XXA - Fracture of nasal bones, initial encounter for closed fracture Status: Acute (9) Closed burst fracture of cervical vertebra: Code(s): S12.9XXA - Fracture of neck, unspecified, initial encounter Status: Acute Subjective Date/time seen: 12/24/22 16:03 Interval history: Remains comfortable since increase in drip last pm. Review of Systems Review of Systems: ROS unobtainable: Yes unobtainable due to medical condition Exam Narrative: Elderly female lying in her hospital bed sleeping soundly Oral mucosa dry Neck no JVD Chest coarse breath sounds Heart regular rate without audible murmur Abdomen bowel sounds hypoactive soft no palpable masses Extremities without edema Musculoskeletal hard cervical collar in place no gross deformities noted to visual inspection Neurologic cranial nerves symmetric to visual inspection Objective Data Vital Signs Vital Signs: Vital Signs - 24 hr 12/23/22 17:24 12/23/22 20:00 12/24/22 06:32 Temperature 98.3 F Pulse Rate 134 H Respiratory Rate 28 H Blood Pressure 109/66 Pulse Oximetry 74 L Oxygen Delivery Room Air Room Air 12/24/22 08:00 12/24/22 15:41 Temperature 98.3 F Pulse Rate 141 H Respiratory Rate 12 Blood Pressure 96/49 L Pulse Oximetry 61 L Oxygen Delivery Room Air Intake/Output Intake/Output: Intake & Output 12/21/22 12/22/22 12/23/22 12/24/22 23:59 23:59 23:59 23:59 Output Total 350 Balance -350 Meds/Results Medications: Active Medications Generic Name Dose Route Start Last Admin Trade Name Freq PRN Reason Stop Dose Admin Artificial Tears 1 drop 12/23/22 21:00 12/24/22 08:01 Artificial Tears Ophth Soln 15 Ml Bottle EACH EYE 1 drop Q12H SCOTT Administration Bisacodyl 10 mg 12/23/22 17:30 Bisacodyl 10 Mg Suppository RECTAL DAILY PRN Constipation Glycopyrrolate 0.1 mg 12/23/22 17:30 Glycopyrrolate Inj (*Sp) 0.2 Mg/Ml Vial IV PUSH Q4H PRN secretions Morphine Sulfate 50 mg/ Sodium 100 mls @ 4 mls/hr 12/23/22 17:30 12/23/22 21:45 Chloride IV CONT 12/30/22 17:30 2 mg/hr .Q24H SCOTT 4 mls/hr Infusion Lorazepam 1 mg 12/23/22 17:30 Lorazepam Inj (*Crx) 2 Mg/Ml Vial IV PUSH Q4H PRN SOB/ANXIETY Morphine Sulfate 2 mg 12/23/22 17:30 Morphine Sulfate (*Crx) 2 Mg/Ml Inj IV PUSH Q2H PRN SOB/PAIN Prochlorperazine Edisylate 10 mg 12/23/22 17:30 Prochlorperazine Edisylate 10 Mg/2 Ml Via
[2022-12-24] MEDS: MORPHINE SULFATE INJ (*CRX) 50 MG in SODIUM CHLORIDE 0.9% IV 95 ML IV CONT (16:47)
[2022-12-24 20:00] VITALS: BP 88/55; PULSE 130; RESP 12; TEMP 36.3; O2SAT 60
[2022-12-25 08:00] VITALS: BP 85/65; PULSE 162; RESP 12; TEMP 35.9; O2SAT 65
[2022-12-25] MEDS: ARTIFICIAL TEARS OPHTH SOLN 15 ML BOTTLE 1 DROP EACH EYE (08:00)
--- NOTE | 2022-12-25 15:18 | PM.IMPN ---
Progress Note: A&P Assessment and Plan (1) Palliative care encounter: Code(s): Z51.5 - Encounter for palliative care Status: Acute Assessment and Plan: Meet inpatient hospice criteria due to requiring continuous IV morphine for control of pain 12/23/2022 morphine increased from 1 milligram/hour to 2 milligrams/hour due to uncontrolled discomfort 12/24/2022 continued morphine drip at 2 mg/hr 12/25 Continued morphine drip at 2 mg/hr (2) Acute subdural hematoma: Code(s): S06.5XAA - Traumatic subdural hemorrhage with loss of consciousness status unknown, initial encounter Status: Acute (3) Cervical spine fracture: Code(s): S12.9XXA - Fracture of neck, unspecified, initial encounter Status: Acute (4) Atrial fibrillation: Qualifiers: Atrial fibrillation type: unspecified Qualified Code(s): I48.91 - Unspecified atrial fibrillation Code(s): I48.91 - Unspecified atrial fibrillation Status: Chronic (5) Fracture of manubrium: Code(s): S22.21XA - Fracture of manubrium, initial encounter for closed fracture Status: Acute (6) Scapula fracture: Code(s): S42.109A - Fracture of unspecified part of scapula, unspecified shoulder, initial encounter for closed fracture Status: Acute (7) Clavicle fracture: Code(s): S42.009A - Fracture of unspecified part of unspecified clavicle, initial encounter for closed fracture Status: Acute (8) Nasal bone fracture: Code(s): S02.2XXA - Fracture of nasal bones, initial encounter for closed fracture Status: Acute (9) Closed burst fracture of cervical vertebra: Code(s): S12.9XXA - Fracture of neck, unspecified, initial encounter Status: Acute Subjective Date/time seen: 12/25/22 15:18 Interval history: Remains comfortable. Review of Systems Review of Systems: ROS unobtainable: Yes unobtainable due to medical condition Exam Narrative: Elderly female lying in her hospital bed sleeping soundly Oral mucosa dry Neck no JVD Chest coarse breath sounds Heart regular rate without audible murmur Abdomen bowel sounds hypoactive soft no palpable masses Extremities without edema Musculoskeletal hard cervical collar in place no gross deformities noted to visual inspection Neurologic cranial nerves symmetric to visual inspection Objective Data Vital Signs Vital Signs: Vital Signs - 24 hr 05/20/23 15:41 12/24/22 20:00 12/24/22 20:00 Temperature 98.3 F 97.4 F L Pulse Rate 141 H 130 H Respiratory Rate 12 12 Blood Pressure 96/49 L 88/55 L Pulse Oximetry 61 L 60 L Oxygen Delivery Room Air 12/25/22 08:05 12/25/22 08:00 Temperature 96.7 F L Pulse Rate 162 H Respiratory Rate 12 Blood Pressure 85/65 L Pulse Oximetry 65 L Oxygen Delivery Room Air Intake/Output Intake/Output: Intake & Output 12/22/22 12/23/22 12/24/22 12/25/22 23:59 23:59 23:59 23:59 Intake Total 100 Output Total 400 75 Balance -300 -75 Meds/Results Medications: Active Medications Generic Name Dose Route Start Last Admin Trade Name Freq PRN Reason Stop Dose Admin Artificial Tears 1 drop 12/23/22 21:00 12/25/22 08:00 Artificial Tears Ophth Soln 15 Ml Bottle EACH EYE 1 drop Q12H SCOTT Administration Bisacodyl 10 mg 12/23/22 17:30 Bisacodyl 10 Mg Suppository RECTAL DAILY PRN Constipation Glycopyrrolate 0.1 mg 12/23/22 17:30 Glycopyrrolate Inj (*Sp) 0.2 Mg/Ml Vial IV PUSH Q4H PRN secretions Morphine Sulfate 50 mg/ Sodium 100 mls @ 4 mls/hr 12/23/22 17:30 12/24/22 16:47 Chloride IV CONT 12/30/22 17:30 2 mg/hr .Q24H SCOTT 4 mls/hr Administration Lorazepam 1 mg 12/23/22 17:30 Lorazepam Inj (*Crx) 2 Mg/Ml Vial IV PUSH Q4H PRN SOB/ANXIETY Morphine Sulfate 2 mg 12/23/22 17:30 Morphine Sulfate (*Crx) 2 Mg/Ml Inj IV PUSH Q2H PRN SOB/PAIN Prochlorperazine Edisylate 10 mg
[2022-12-25] MEDS: MORPHINE SULFATE INJ (*CRX) 50 MG in SODIUM CHLORIDE 0.9% IV 95 ML IV CONT (17:11)
[2022-12-25 20:00] VITALS: BP 108/68; PULSE 171; RESP 22; TEMP 38.3; O2SAT 68
--- NOTE | 2022-12-26 02:33 | PC.NURSE ---
Time of 0204.
--- NOTE | 2022-12-26 19:05 | PM.DDS ---
Discharge Summary Date and Time Date of : 12/26/22 Time of : 02:04 Provider Pronounced By: Wander Chapin RN/Venkata Celaya RN Probable Cause of Probable Cause of : SUBDURAL HEMATOMA, ACUTE Summary Hospital Course: Admitted to inpatient hospice service. Medications titrated to comfort. Mr. Avila peacefully. Additional Data Confirmation of as documented by pronouncing clinician: Pupillary Reflex, Palpable Pulses, Response to Stimuli, Heart Tones and Breath Sounds Name of Provider Notified: Nitza Time Provider Notified: 02:39 [employer] Helper Notified: Yes Date [facility] Notified of : 12/26/22 Time [facility] Notified of : 02:22
== END 2022-12-26 02:04 | disposition expired | DRG 951 ==
PROVIDERS: Admitting Provider Internal Medicine; PCP Hospitalist; Visit Provider Internal Medicine
DX: Z51.5 Encounter for palliative care (principal); S06.5XAA Traumatic subdural hemorrhage with loss of consciousness status unknown, initial encounter; S22.21XA Fracture of manubrium, initial encounter for closed fracture; S12.9XXA Fracture of neck, unspecified, initial encounter; I48.20 Chronic atrial fibrillation, unspecified; S42.009A Fracture of unspecified part of unspecified clavicle, initial encounter for closed fracture; S42.109A Fracture of unspecified part of scapula, unspecified shoulder, initial encounter for closed fracture; S02.2XXA Fracture of nasal bones, initial encounter for closed fracture; Z66 Do not resuscitate; W19.XXXA Unspecified fall, initial encounter
CPT/HCPCS: A9270; J2270